=== PATIENT | female | born 1960 | race Two or more races ===

== ENCOUNTER 2017-01-19 10:43 | Emergency (ER) | payer MEDICAID, OTHER ==
[~2017-01-19] VITALS: Ht 167.6 cm; Wt 74.8 kg
[~2017-01-19 10:43] MED LIST: LEVO125T PO
[2017-01-19 10:45] VITALS: BP 122/68
== END 2017-01-19 12:13 | disposition home or self-care (01) ==
LOC: ER 10:48
DX: S63.501A Unspecified sprain of right wrist, initial encounter (principal); I10 Essential (primary) hypertension; F17.200 Nicotine dependence, unspecified, uncomplicated; Z51.5 Encounter for palliative care; Z88.5 Allergy status to narcotic agent; Z88.6 Allergy status to analgesic agent; X58.XXXA Exposure to other specified factors, initial encounter; Y93.89 Activity, other specified; Y92.89 Other specified places as the place of occurrence of the external cause; Y99.9 Unspecified external cause status
CPT/HCPCS: 73110; 99284; A4606; Z7610